=== PATIENT | female | born 1935 | race Caucasian/White ===

== ENCOUNTER 2018-06-10 08:01 | Outpatient (CLI) | payer MEDICARE, BC ==
--- NOTE | 2018-06-10 09:54 | BD ---
DEXA SCAN: DATE: 06/10/2018. FINDINGS: Lumbar Spine: BMD (g/cm2) L1 1.143 T-Score: 1.4 3.8 L2 1.370 T-Score: 3.1 5.8 L3 1.128 T-Score: 0.4 3.2 L4 1.172 T-Score: 1.0 3.9 L1-L4 1.196 T-Score: 1.4 4.1 Femoral Neck: 0.587 T-Score:-2.4 0 Total Femur: 0.804 T-Score:-1.1 1 UD: 0.393 T-Score:-0.9 1.4 Mid: 0.548 T-Score:-1.1 2.1 1/3 0.627 T-Score:-1.1 2.2 Total 0.518 T-Score:-1.1 1.9 Impression: Calculated bone mineral density meets WHO criteria for osteopenia in the forearm and femoral neck, pl acing the patient at increased risk for fracture. POS: DIANELYS
== END 2018-06-10 08:02 | disposition home or self-care (01) ==
LOC: BICMAMMO 08:01
PROVIDERS: ATTEND Physical Medicine & Rehabilitation
DX: Z13.820 Encounter for screening for osteoporosis (principal); M41.9 Scoliosis, unspecified; M85.89 Other specified disorders of bone density and structure, multiple sites
CPT/HCPCS: 77080

== ENCOUNTER 2020-10-18 12:26 | Outpatient (CLI) | payer MEDICARE, BC | END 2020-10-18 12:27 | disposition home or self-care (01) | LOC: BICRAD 12:26 | PROVIDERS: ATTEND Internal Medicine Pulmonary Disease | DX: R06.00 Dyspnea, unspecified (principal) | CPT/HCPCS: 71046 ==

== ENCOUNTER 2021-09-06 10:07 | Outpatient (CLI) | payer MEDICARE, BC ==
[2021-09-06 11:27] LABS: Anion Gap 15 mmol/L (10-20); BUN (Urea Nitrogen) 34 mg/dL (9.8-20.1); Calc. Creatinine Clearance 0 mL/min (70-130); Calcium 9.9 mg/dL (7.8-10.44); Carbon Dioxide 21 mmol/L (23-31); Chloride 111 mmol/L (98-107); Glucose 97 mg/dL (83-110); Potassium 5.4 mmol/L (3.5-5.1); Sodium 142 mmol/L (136-145)
[2021-09-06 11:29] LABS: Hemoglobin 10.5 g/dL (12.0-15.5); Mean Corpuscular HGB CONC 31.2 g/dL (32.0-36.0); Mean Corpuscular Hemoglobin 31.2 pg (27.0-33.0); Mean Platelet Volume 9.5 fl (7.4-10.4); Platelet Count 248 10x3/uL (150-450); RBC Distribution Width 14.4 % (11.5-14.5); Red Blood Cell (RBC) Count 3.37 10x6/uL (3.90-5.03); White Blood Cell (WBC) Count 7.2 10x3/uL (3.5-10.5)
[2021-09-06 11:31] LABS: INR-International Normal Ratio 0.9; PTT 25.9 sec (22.0-33.0); Prothrombin Time 10.2 sec (9.5-12.1)
[2021-09-06 18:44] LABS: SARS-CoV-2 PCR by NAA Not Detected (NotDetected)
== END 2021-09-06 10:08 | disposition home or self-care (01) ==
LOC: LABBT 10:07
PROVIDERS: ATTEND Surgery
DX: Z01.812 Encounter for preprocedural laboratory examination (principal); M54.16 Radiculopathy, lumbar region; M48.061 Spinal stenosis, lumbar region without neurogenic claudication; Z20.822 Contact with and (suspected) exposure to COVID-19
CPT/HCPCS: 80048; 85027; 85610; 85730; U0003; U0005

== ENCOUNTER 2021-09-09 06:05 | Inpatient (IN) | payer MEDICARE, BC ==
[2021-09-09] MEDS ORDERED: Thrombin 5000 UNITS/5 ML VIAL ONE (06:31)
[2021-09-09] MEDS ORDERED: fentaNYL Citrate/PF 100 MCG/2 ML SYRINGE ONE (06:54)
[2021-09-09] MEDS ORDERED: Sodium Chloride 0.9% 100 ML ONE (07:20)
[2021-09-09] MEDS ORDERED: CEFAZOLIN 2 GM VIAL ONE (07:20)
[2021-09-09] MEDS ORDERED: Ondansetron PF 4 MG/2 ML Vial ONE (07:35)
[2021-09-09] MEDS ORDERED: PROPOFOL 200 MG/20 ML VIAL ONE (07:35)
[2021-09-09] MEDS ORDERED: ePHEDrine 50 MG/ML VIAL ONE (07:35)
[2021-09-09] MEDS ORDERED: PHENYLEPHRINE-NS 100 MCG/ML 10 ML SYRINGE ONE (07:35)
[2021-09-09] MEDS ORDERED: Rocuronium Bromide 10 MG/ML (10ML VIAL) ONE (07:35)
[2021-09-09] MEDS ORDERED: Lidocaine 1% PF 5 ML VIAL ONE (07:35)
[2021-09-09] MEDS ORDERED: Dexamethasone 20 MG/5 ML VIAL ONE (07:35)
[2021-09-09] MEDS ORDERED: Phenylephrine 10 MG/ML VIAL ONE (09:12)
[2021-09-09] MEDS ORDERED: Ondansetron PF 4 MG/2 ML Vial IVP PRN (09:54)
[2021-09-09] MEDS ORDERED: Acetaminophen 325 MG TAB PO PRN (09:54)
[2021-09-09] MEDS ORDERED: traMADol HCl 50 MG TAB PO PRN (09:54)
[2021-09-09] MEDS ORDERED: Polyethylene Glycol 3350 17 GM Packet PO PRN (10:05)
[2021-09-09] MEDS ORDERED: Bisacodyl 10 MG SUPP PR PRN (10:05)
[2021-09-09] MEDS ORDERED: SUGAMMADEX SODIUM 200 MG/2 ML VIAL ONE (10:23)
[2021-09-09] MEDS ORDERED: Fentanyl 100 MCG/2 ML VIAL ONE (11:05)
[2021-09-09] MEDS ORDERED: HYDROmorphone 0.5 MG/0.5 ML SYRINGE ONE (11:05)
[2021-09-09] MEDS ORDERED: Promethazine HCl 25 MG/ML VIAL IM PRN (11:12)
[2021-09-09] MEDS ORDERED: Ondansetron HCl/PF 4 MG/2 ML Vial IVP PRN (11:12)
[2021-09-09] MEDS ORDERED: Promethazine HCl 25 MG/ML VIAL IVPB PRN (11:12)
[2021-09-09 12:49] VITALS: BMI 23.9
[2021-09-09] MEDS: Sodium Chloride 0.9% 1,000 ML IV SCH ×2 (12:52→21:22)
[2021-09-09 13:17] LABS: Hemoglobin 10.5 g/dL (12.0-16.0)
[2021-09-09 13:23] LABS: Potassium 4.4 mmol/L (3.5-5.1)
[2021-09-09] MEDS: HYDROcodone/Acetaminophen 7.5/325 mg Tablet PO PRN ×2 (14:10→23:57)
[2021-09-09] MEDS: tiZANidine HCl 4 MG TAB PO PRN ×2 (15:46→22:50)
[2021-09-09] MEDS: CEFAZOLIN 2 GM in Sodium Chloride 0.9% 100 ML IVPB SCH ×2 (15:47→23:47)
[2021-09-09] MEDS ORDERED: Docusate 100 MG CAP PO SCH (21:00)
[2021-09-09] MEDS ORDERED: Non-Formulary Item 1 EACH (Biotin [Biotin] 10,000 MCG Capsule) PO SCH (21:00)
[2021-09-09] MEDS: Cholecalciferol 1,000 UNITS (25 MCG) TAB PO SCH (21:14)
[2021-09-09] MEDS: Docusate 100 MG CAP PO SCH (21:14)
[2021-09-09] MEDS: Acetaminophen/Codeine 30-300mg Tablet PO PRN (21:15)
[2021-09-09] MEDS: Meclizine HCl 25 MG TAB PO SCH (21:15)
[2021-09-09] MEDS: Atorvastatin Calcium 10 MG TAB PO SCH (21:15)
[2021-09-10 05:52] LABS: #Eosinphils 0.1 thou/uL (0.0-0.7); #Lymphocytes 1.4 thou/uL (1.20-3.40); #Monocytes 0.9 thou/uL (0.11-0.59); #Neutrophils 6.9 thou/uL (1.40-6.50); %Basophils 0.3 % (0.0-1.0); %Eosinophils 0.7 % (0.0-10.0); %Lymphocytes 15.5 % (21.0-51.0); %Monocytes 9.4 % (0.0-10.0); %Neutrophils 74.1 % (42.0-75.0); Hemoglobin 9.3 g/dL (12.0-16.0); Mean Corpuscular HGB CONC 32.7 g/dL (32.0-36.0); Mean Platelet Volume 6.4 fL (7.4-10.4); Platelet Count 186 thou/uL (130-400); RBC Distribution Width 12.8 % (11.5-14.5); White Blood Cell (WBC) Count 9.3 thou/uL (4.8-10.8)
[2021-09-10 06:17] LABS: Anion Gap 11 mmol/L (10-20); BUN (Urea Nitrogen) 35 mg/dL (9.8-20.1); Calc. Creatinine Clearance 25 mL/min (70-130); Calcium 8.4 mg/dL (7.8-10.44); Carbon Dioxide 21 mmol/L (23-31); Chloride 110 mmol/L (98-107); Glucose 99 mg/dL (83-110); Potassium 4.7 mmol/L (3.5-5.1); Sodium 137 mmol/L (136-145)
[2021-09-10] MEDS: Levothyroxine Sodium 88 MCG TAB PO SCH (06:20)
[2021-09-10] MEDS: HYDROcodone/Acetaminophen 7.5/325 mg Tablet PO PRN ×3 (06:21→20:19)
[2021-09-10] MEDS: tiZANidine HCl 4 MG TAB PO PRN (09:41)
[2021-09-10] MEDS: Losartan 25 MG TAB PO SCH (09:42)
[2021-09-10] MEDS: Vit A,C & E/Lutein/Minerals Tablet PO SCH (09:42)
[2021-09-10] MEDS: Acetaminophen/Codeine 30-300mg Tablet PO PRN (09:42)
[2021-09-10] MEDS: CRANBERRY 400 MG PO SCH (14:44)
[2021-09-10] MEDS: Sodium Chloride 0.9% 1,000 ML IV SCH ×2 (14:45→21:57)
[2021-09-10] MEDS: Morphine 2 MG/ML VIAL SLOW IVP PRN ×3 (15:10→21:43)
[2021-09-10] MEDS: Meclizine HCl 25 MG TAB PO SCH (20:18)
[2021-09-10] MEDS: Cholecalciferol 1,000 UNITS (25 MCG) TAB PO SCH (20:18)
[2021-09-10] MEDS: Atorvastatin Calcium 10 MG TAB PO SCH (20:18)
[2021-09-10] MEDS: Docusate 100 MG CAP PO SCH (20:19)
[2021-09-11] MEDS: Morphine 2 MG/ML VIAL SLOW IVP PRN ×5 (01:52→20:27)
[2021-09-11] MEDS: HYDROcodone/Acetaminophen 7.5/325 mg Tablet PO PRN ×2 (05:54→12:41)
[2021-09-11] MEDS: Levothyroxine Sodium 88 MCG TAB PO SCH (05:54)
[2021-09-11] MEDS: Losartan 25 MG TAB PO SCH (08:54)
[2021-09-11] MEDS: Vit A,C & E/Lutein/Minerals Tablet PO SCH (09:45)
[2021-09-11] MEDS: Sodium Chloride 0.9% 1,000 ML IV SCH ×2 (15:20→23:40)
[2021-09-11] MEDS: Atorvastatin Calcium 10 MG TAB PO SCH (20:26)
[2021-09-11] MEDS: Docusate 100 MG CAP PO SCH (20:26)
[2021-09-11] MEDS: Meclizine HCl 25 MG TAB PO SCH (20:26)
[2021-09-11] MEDS: Cholecalciferol 1,000 UNITS (25 MCG) TAB PO SCH (20:27)
[2021-09-12] MEDS: Morphine 2 MG/ML VIAL SLOW IVP PRN (02:53)
[2021-09-12] MEDS: Acetaminophen/Codeine 30-300mg Tablet PO PRN ×3 (04:36→14:49)
[2021-09-12] MEDS: Levothyroxine Sodium 88 MCG TAB PO SCH (04:36)
[2021-09-12] MEDS: Losartan 25 MG TAB PO SCH (07:45)
[2021-09-12] MEDS: Vit A,C & E/Lutein/Minerals Tablet PO SCH (07:45)
[2021-09-12] MEDS: HYDROcodone/Acetaminophen 7.5/325 mg Tablet PO PRN (12:27)
[2021-09-12] MEDS: Sodium Chloride 0.9% 1,000 ML IV SCH (13:28)
[2021-09-12] MEDS: tiZANidine HCl 4 MG TAB PO PRN (14:54)
[2021-09-12] MEDS ORDERED: Sodium Chloride 0.9% 500 ML IV SCH (17:00)
[2021-09-12 20:12] VITALS: BP 113/61; TEMP 98.4
== END 2021-09-12 20:10 | DRG 517 ==
LOC: SDC 06:05 → MSONC 09:54 → OBSVTOIN 09-11 12:08
PROVIDERS: ADMIT Surgery; ATTEND Surgery
PROC: 01NB0ZZ Release Lumbar Nerve, Open Approach (ICD-10-PCS; principal; 2021-09-09)
PROC: 01NR0ZZ Release Sacral Nerve, Open Approach (ICD-10-PCS; 2021-09-09)
DX: M48.061 Spinal stenosis, lumbar region without neurogenic claudication (principal); M54.16 Radiculopathy, lumbar region; Z20.822 Contact with and (suspected) exposure to COVID-19; Z28.21 Immunization not carried out because of patient refusal; Z79.899 Other long term (current) drug therapy; Z79.82 Long term (current) use of aspirin
CPT/HCPCS: 36415; 76000; 80048; 85025; 93970; 96365; 96366; 96375; 96376; G0378; J1100; J1170; J2270; J2370; J2405; J2704; J3010; J3370; J3490; J7030